=== PATIENT | female | born 1930 | race Caucasian/White ===

== ENCOUNTER 2016-10-03 13:14 | Inpatient (IN) | payer MEDICARE ==
[~2016-10-03] VITALS: Ht 166.4 cm; Wt 56.7 kg
[2016-10-03 13:21] VITALS: BP 157/85; PULSE 68; RESP 20; O2SAT 100
--- NOTE | 2016-10-03 13:45 | ED.REPORT ---
HPI-Trauma Minor / Fall Date of Service Oct 03, 2016 ED Provider: Jacques Sutton MD An 85 year old right handed female with a history of a stroke 7 years ago and HTN presents to the ED with L hip pain following a GLF which occurred sometime since last night. The patient is a poor historian and is unable to clarify when she fell. She was found in kitchen by sister after her medical alert went off approximately 1 hour GRADING CLERK (approx 12;30). The patient describes pain in her left hip described as soreness. Per patient, she was getting out of bed and trying to put her slippers on when she slipped and landed on the floor landing in a siting position. She grabbed onto mattress pad tab to get up. She then went to the bathroom and then to the kitchen. While in the kitchen, she apparently suffered a ground-level fall as she awoke laying on the floor. She does not believe she had any additional injury. She pushed her life alert button and family was alerted to her dilemma. The patient does not believe she hit her head in the fall. She is not sure how she ended up falling. She denies any headache, neck pain, fever, chills, dysuria, chest pain, abdominal pain, cough, vomiting, diarrhea, or aches . She also denies any functional impairment after her stroke 7 years ago. She is not taking any blood thinners and denies having diabetes. She reports baseline "funny" feeling in diaphragm area after eating. She is accompanied by sister, daughter, and granddaughter. . Nursing Notes Stated Complaint: GLF/LEFT SIDED WEAKNESS Chief Complaint: Neuro Symptoms/ Deficits Nursing Notes Reviewed: Yes Allergies: Coded Allergies: No Known Allergies (Unverified , 10/03/16) Scheduled Aspirin Chew (Aspirin Chew) 81 Mg Chew 81 MG PO DAILY Hydrochlorothiazide (Hydrochlorothiazide) 25 Mg Tablet 25 MG PO DAILY Levothyroxine (Levothyroxine) 75 Mcg Tablet 75 MCG PO QAM Lisinopril (Lisinopril) 20 Mg Tablet 20 MG PO BID Metoprolol Succinate ER (Metoprolol Succinate ER) 25 Mg Tab.er.24h 25 MG PO HS General Time Seen by MD: 13:42 Chief Complaint Fall Hx Obtained From: Patient, Other family... (sister, daughter, granddaughter), EMS Arrived By: Ambulance Onset Occurred: 1 - 4 hours ago (yesterday or this morning, patient is unsure.) Symptom Duration: Since onset Location: Hip left Severity: Current: Mild Severity: Maximum: Mild Recent Healthcare: No recent hospitalization Similar Sx Previous: No Risk Factors IC Bleed Risk Stratification Risk factors reviewed (Has history of stroke.) )( TPA Administration/Criteria Stroke Thrombolytic Therapy : TPA Considered: Yes TPA Administered Intravenously: No, exclusion criteria (Trauma, recent fall , no known onset) NIH Stroke Scale Level of Consciousness: Alert and responsive (0) Ask Month & Age: Both questions right (0) Open/Close Eyes/Hand Rn Bone Marrow Transplant: Performs both tasks (0) Horizontal EO Movements: None (0) Visual Ordoñez: No visual loss (0) Facial Palsy: Normal symmetry (0) Right Arm Motor Drift (10s): No drift 10 sec (0) Left Arm Motor Drift (10s): Drift, not touch bed (1) Right Leg Motor Drift (5s): No drift 5 sec (0) Left Leg Motor Drift (5s): No drift 5 sec (0) Limb Ataxia FNF/Heel-Cruz: Ataxia in 2 limbs (2) (Left upper and Left lower) Sensation (Arms/Legs/Face): No sensory loss (0) Language Aphasia: No aphasia, normal (0) Dysarthria: No dysarthria, normal (0) Extinction/Inattention: No exctinct/inattent (0) NIHSS Score: 2 Time NIHSS Performed: 17:40 Date NIHSS Performed: Oct 03, 2016 Past Medical History Past Medical History Stroke in August,. Hypothyroidism. Hypoglycemia. Not currently taking blood thinner medication. Denies: Diabetes mellitus Past Surgical History None reported. Smoking History Unknown if Ever Smoker Social History Other Social History: Good social support (Family lives nearbye), Lives alone Review of Systems Constitutional: Denies: Chills, Fever, Malaise Respiratory: Denies: Non-productive cough Musculoskeletal: Denies: Joint pain, Neck pain Neurologic: Denies: Headache Complete sys rev & neg: except as marked. Cardiovascular: Denies: Chest pain GI: Denies: Abdominal pain, Diarrhea, Vomiting Female: Denies: Dysuria Physical Exam Initial Vital Signs Vital Signs (First) Date Time Temp Pulse Resp B/P Pulse Ox O2 Delivery O2 Flow Rate FiO2 10/03/16 13:21 36.6 68 20 157/85 100 Room Air Initial VS: Reviewed General/Constitutional: Awake, Alert Neck: Atraumatic, Full range of motion Head / Eyes: Atraumatic, Normocephalic, PERRL, EOMI ENT: Atraumatic, Airway patent, Mucous membranes moist Respiratory / Chest: Atraumatic, Breath sounds NL, Breath sounds = bilat, No respiratory distress Cardiovascular: Heart rate NL, Regular rhythm, Heart sounds NL, No gallop, No murmurs, No rubs Abdomen: Atraumatic, Soft, Non-tender, McBurney's non-tender, No guarding, No rebound Back: Atraumatic, Full range of motion Upper Extremity / MS: Atraumatic, Full range of motion Lower Extremity / Pelvis / MS: Atraumatic, Full range of motion FROM in both hips. No lateral greater trochanteric tenderness. Skin: Atraumatic, Color NL, No rash, Warm, Dry Neurologic: Speech NL Focal Weakness: Positive: Upper extremity L Ataxia. Interpretation & Diagnostics Lab Results Interpretation Result Diagram: 10/03/16 1455 10/03/16 1455 Test 10/03/16 14:55 10/03/16 16:45 White Blood Count 10.9th/mm3 (3.8-10.1) Red Blood Count 3.94mil/mm3 (3.90-5.20) Hemoglobin 12.3g/dL (12.0-15.6) Hematocrit 34.9% (35.0-46.0) Mean Corpuscular Volume 88.6fL (81-100) Mean Corpuscular Hemoglobin 31.2pg (27.0-35.0) Mean Corpuscular Hemoglobin Concent 35.2% (32.0-37.0) Red Cell Distribution Width 13.3% (12.3-15.4) Platelet Count 217bil/L (150-400) Neutrophils (%) (Auto) 83.5% (40-74) Lymphocytes (%) (Auto) 7.4% (14-46) Monocytes (%) (Auto) 7.1% (4-12) Eosinophils (%) (Auto) 1.5% (0-5) Basophils (%) (Auto) 0.2% (0-3) Sodium Level 139mEq/L (134-144) Potassium Level 3.7mEq/L (3.5-5.2) Chloride Level 101mEq/L (97-108) Carbon Dioxide Level 20mmol/L (18-29) Blood Urea Nitrogen 33mg/dL (8-27) Creatinine 1.29mg/dL (0.57-1.00) Estimat Glomerular Filtration Rate 56mL/min (>59) Glucose Level 122mg/dL (60-99) Calcium Level 9.2mg/dL (8.5-10.1) Total Bilirubin 0.6mg/dL (0.0-1.2) Aspartate Amino Transf (AST/SGOT) 19U/L (0-50) Alanine Aminotransferase (ALT/SGPT) 9U/L (0-32) Alkaline Phosphatase 71U/L (25-165) Troponin T < 0.010ug/L (0.0-0.011) Total Protein 7.1g/dL (6.4-8.4) Albumin 4.0g/dL (3.4-5.0) Urine Color Yellow (YELLOW) Urine Appearance Clear (CLEAR,HAZY) Urine pH 6.0 (5.0-8.0) Urine Specific [place] 1.020 (1.003-1.035) Urine Protein Negativemg/dL (NEG,TRACE) Urine Glucose (UA) Negativemg/dL (NEGATIVE) Urine Ketones Tracemg/dL (NEGATIVE) Urine Occult Blood Trace (NEGATIVE) Urine Nitrite Negative (NEGATIVE) Urine Bilirubin Negative (NEGATIVE) Urine Urobilinogen Normalmg/dL (NORMAL) Urine Leukocyte Esterase Negative (NEGATIVE) Urine RBC 0-2/hpf (0-2) Urine WBC 0-5/hpf (0-5) Urine Epithelial Cells Few/hpf (NONE-MOD) Urine Crystals None seen (NONE SEEN) Urine Bacteria Few/hpf (NONE-FEW) Urine Hyaline Casts None/lpf (NONE) Urine Granular Casts None seen (NONE SEEN) Urine Waxy Casts None seen (NONE SEEN) Urine Red Blood Cell Casts None seen (NONE SEEN) Urine White Blood Cell Casts None seen (NONE SEEN) Urine Mucus None seen (None Seen) Urine Trichomonas None seen (NONE SEEN) Urine Yeast None (NONE SEEN) Urinalysis Comment None Urine Culture Reflexed Not indicated General Lab Results Interp 1: Labs reviewed ECG Interpretation ECG Interpretation: Sinus Rythm. Rate is 67. Non-specific ST wave changes. Time: 16:16 Interpreted by: ED physician CT Head Interpretation IMPRESSION: 1. No acute intracranial abnormality. 2. Age-related atrophy and extensive chronic deep white matter small vessel ischemic change. 3. Chronic lacunar infarct in the anterior right basal ganglia. Dictated by: Segundo Garcia M.D. on 10/03/2016 at 15:34 Approved by: Segundo Garcia M.D. on 10/03/2016 at 15:39 Study: Head CT no contrast Interpretation / Wet Read by: Interpret - Radiologist Re-Eval/Medical Decision Med Decision/Clinical Course Family is very likely concerned about the fact that I am not wanting to feed her. I think it is reasonable to await swallow evaluation prior to oral feeding. I told them that they could TO feed her but it would not be advisable because of the risk of aspiration. Source of Hx: Old records, EMS Re-Evaluation/Progress #1: Time of Eval: 17:13 Re-Evaluation/Progress Note: Rechecked patient who is now accompanied by her son. Explained and discussed test results, diagnosis, and plan for admission. Patient understands and agrees with the plan. Re-Evaluation/Progress #2: Time of Eval: 17:25 Re-Evaluation/Progress Note: Rechecked patient. Performed NIH Stroke Scale. Consultation : Referral / Consult Name: Pascual Jeffers MD Consulted With: Hospitalist Call Returned at: 17:41 Change Control Specialist: Agrees with eval, Agrees with plan, Accepts admit Note: Dr. Jeffers agrees with eval and accepts patient admit to hospital. Counseled Regarding: Diagnosis, Lab results, Need for admission Discharge & Departure Impression: Primary Impression: CVA (cerebral vascular accident) CVA mechanism: unspecified Qualified Code: I63.9 - Cerebral infarction, unspecified Disposition: ADMITTED TO HOSPITAL Discharge Condition All VS Reviewed: Yes Referrals: Jeremías Burgos MD (PCP) Scribe Attestation Portions of this note were transcribed by Chuck Richardson and Ketty Friedman. I, , personally performed the history, physical exam, and medical decision-making: I reviewed and confirmed the accuracy for the information in the transcribed note. Signed by: Chuck Richardson and albert Rich, 10/03/16 1422. copies to: Jeremías Burgos MD, Kirk H MD Oct 03, 2016 13:44 Chuck Richardson Oct 03, 2016 13:55 Ketty Friedman Oct 03, 2016 17:58
[2016-10-03 15:05] LABS: BASOPHILS % (AUTO) 0.2 % (0-3); EOSINOPHILS % (AUTO) 1.5 % (0-5); MONOCYTES % (AUTO) 7.1 % (4-12); Mean Corpuscular Hemoglobin 31.2 pg (27.0-35.0); Mean Corpuscular Volume 88.6 fL (81-100); NEUTROPHILS % (AUTO) 83.5 % (40-74); Platelet Count 217 bil/L (150-400)
[2016-10-03 15:31] LABS: TROPONIN T < 0.010 ug/L (0.0-0.011)
--- NOTE | 2016-10-03 15:41 | DRSVH ---
PROCEDURE: CT BRAIN WITHOUT CONTRAST ([id number]) INDICATIONS: Left Upper extremity weak TECHNIQUE: Noncontrast 4.5 mm thick angled axial sections acquired from the foramen magnum to the vertex, with c oronal reformats. COMPARISON: CT brain 08/23/2009 FINDINGS: Image quality: Excellent CSF spaces: Basal cisterns are patent. No extra-axial fluid collections. The ventricles are symmet presley in size and shape. Brain: No intracranial bleeds or masses. There is cerebral volume loss for age, with resultant vent ricular and sulcal prominence. No apparent residual of previous hemorrhag in the right frontoparietal hemisphere. There are extensive periventricular and deep white matter chronic small vessel ischemic changes. The chronic lacunar infarct adjacent to the right caudate nucleus on the last exam is much l arger on current study, presumably representing extension of previous infarct but still chronic in ap pearance. There is intracranial internal carotid artery atherosclerosis. Skull and face: Calvarium and visualized facial bones appear intact, without suspicious lesions. Sinuses: Visualized sinuses and mastoids are clear. IMPRESSION: 1. No acute intracranial abnormality. 2. Age-related atrophy and extensive chronic deep white matter small vessel ischemic change. 3. Chronic lacunar infarct in the anterior right basal ganglia. Dictated by: Segundo Garcia M.D. on 10/03/2016 at 15:34 Approved by: Segundo Garcia M.D. on 10/03/2016 at 15:39
[2016-10-03] MEDS ORDERED: Acetaminophen IV 1,000 MG in IV Premix 1 EACH IV ONE (16:10)
[2016-10-03 17:10] LABS: APPEARANCE,URINE CLEAR (CLEAR,HAZY); COLOR,URINE YELLOW (YELLOW); OCCULT BLOOD,URINE TRACE (NEGATIVE); UROBILINOGEN,URINE NORMAL (NORMAL)
[2016-10-03] MEDS ORDERED: Dextrose 5% 0.9% NaCl 1,000 ML IV SCH (17:25)
[2016-10-03] MEDS ORDERED: LEVO75TA4 PO (17:47)
[2016-10-03] MEDS ORDERED: HYDR25TA4 PO (17:48)
[2016-10-03] MEDS ORDERED: METO25TA99 PO (17:48)
[2016-10-03] MEDS ORDERED: LISI-567 PO (17:49)
[2016-10-03] MEDS ORDERED: ASPI81TA3 PO (17:49)
[2016-10-03 18:09] VITALS: BP 138/60; PULSE 75; RESP 18; O2SAT 94
[2016-10-03] MEDS ORDERED: Ondansetron 2 mg/mL 2 mL Inj IVPUSH PRN (18:10)
[2016-10-03] MEDS ORDERED: HYDROmorphone 0.5 mg/0.5 mL iSecure Syringe IVPUSH PRN (18:10)
[2016-10-03 18:53] VITALS: BP 138/60; PULSE 75; RESP 18; O2SAT 94
[2016-10-03 19:16] VITALS: PULSE 84
[2016-10-03 19:31] VITALS: BP 160/97; PULSE 90; RESP 18; O2SAT 98
--- NOTE | 2016-10-03 19:45 | NUR ---
Admission Note Pt admitted to [facility] on stretcher from ER at 1856, alert and orientedx3, denies any pain/SOB/N/V/fever/chills/numbness/tingling. Pt states "I don't feel anything wrong" Neurocheck:generalized weakness when up to BSC,strength equal bilaterally on all extremities, tongue deviated to the left, no facial droop noted, no speech difficulty noted, understanding spoken language. Sensation intact. Lung sound clear, HR regular, no murmur, tele applied: SR 62 per instrument technician. Abdomen soft, nontender, BT active, no edema on LEs, pedal pulse weak but palpable. BP 166/97 HR 90% on RA RR 18, T37.3. Pt passed swallow screen and on puree diet per report from ER Nurse "Misael Stuart" Pt oriented to call light, and instructed to call when need OOB for safety. Several family in room.
[2016-10-03] MEDS ORDERED: Alum-Mag Hydrox-Simeth 30 mL Suspension PO PRN (20:40)
[2016-10-03] MEDS ORDERED: Polyethylene Glycol (PEG) 17 Gm Powder PO PRN (20:40)
[2016-10-03] MEDS ORDERED: Ondansetron 2 mg/mL 2 mL Inj IV PRN (20:40)
[2016-10-03] MEDS ORDERED: Labetalol 5 mg/mL 4 mL Inj IVPUSH PRN (20:40)
[2016-10-03 22:09] LABS: INR 0.97 ratio
[2016-10-03] MEDS: 0.9% Sodium Chloride 1,000 ML IV SCH (22:32)
--- NOTE | 2016-10-03 22:52 | PCM.HPMED ---
Subjective Date of Service Oct 03, 2016 Primary Provider: Admitting Physician: Pascual Jeffers MD Primary Care Physician: Jeremías Burgos MD Attending Physician: Pascual Jeffers MD Admit Status: From the Emergency Department Chief Complaint: Weakness and ground-level fall History of Present Illness: 85-year-old female patient with a history of CVA 7 years ago, hypertension, hypothyroidism presented to the ER following a ground-level fall. Patient and her daughter are both poor historians. Patient reports that sometime yesterday or possibly today she fell and slipped off her bed and hit her buttocks on the ground while attempting to put her slippers on she states that she was able to get up and go to the restroom, and later was able to get up and go to the kitchen at which point she had another fall but denies any loss of consciousness. Patient reports she is not sure how or why she fell in the kitchen but denies any loss of consciousness or hitting her head. Patient reports that when she fell in the kitchen she had her medical alert button and her family was informed and EMS called. ER records demonstrate that patient had left-sided weakness on presentation. At the time of my interview all of the patient's symptoms had resolved. Vital signs in the ER as follows, temperature 36.6, pulse 68, respiratory rate 20, blood pressure 157/85, pulse ox 100% on room air. Review of Systems: A comprehensive review of systems was conducted with the patient and found to be negative except as above in the History of Present Illness. Allergies Coded Allergies: No Known Allergies (Unverified , 10/03/16) Home Medications Aspirin 81 mg daily Levothyroxine 75 mg daily Hydrochlorothiazide 25 mg daily Lisinopril 20 mg twice a day Metoprolol 25 mg daily PMH Hypoglycemia Peripheral artery disease CVA 7 years ago Hypertension Hypothyroidism Hyperlipidemia Chronic kidney disease stage III Surgical History None reported Family History Father with bladder cancer Social History Hx Alcohol Use: No Hx Substance Use: No Hx Tobacco Use: No Smoking Status: Never Smoker Living Arrangement: Alone Exam Vital Signs Vital Sign - Last Date Time Temp Pulse Resp B/P Pulse Ox O2 Delivery O2 Flow Rate FiO2 10/03/16 19:31 37.3 90 18 160/97 98 Room Air Exam General: Poor historian. No acute distress, well-developed, well-nourished, appropriately interactive HEENT: Normocephalic, atraumatic. External ears without defect. Pupils equal, round, and reactive to light and accommodation. Moist conjunctivae. Oropharynx with moist mucosa. Neck: Supple with full range of motion.No lymphadenopathy Cardiovascular: Regular rate and rhythm with no murmurs, rubs, or gallops appreciated Pulmonary: Clear to auscultation bilaterally with no crackles, wheezes, or rhonchi. Normal respiratory effort with no use of accessory muscles. Abdomen: Bowel tones present. Soft, nontender, nondistended. Extremities: No clubbing, cyanosis, edema, appreciated. Skin: Normal temperature, turgor, and texture; no rash, ulcers, or subcutaneous nodules appreciated. Psychiatric: Normal mood and affect. Alert and oriented to person, place, and time. Neurological: Cranial nerves grossly intact. Normal muscle strength, tone, and bulk. Reflexes, coordination, and sensory function within normal limits. Lab and Diagnostics Result Diagram: 10/03/16 1455 10/03/16 1455 X-Rays, CTs and MRIs PROCEDURE: CT BRAIN WITHOUT CONTRAST ([id number]) INDICATIONS: Left Upper extremity weak TECHNIQUE: Noncontrast 4.5 mm thick angled axial sections acquired from the foramen magnum to the vertex, with coronal reformats. COMPARISON: CT brain 08/23/2009 FINDINGS: Image quality: Excellent CSF spaces: Basal cisterns are patent. No extra-axial fluid collections. The ventricles are symmetric in size and shape. Brain: No intracranial bleeds or masses. There is cerebral volume loss for age , with resultant ventricular and sulcal prominence. No apparent residual of previous hemorrhag in the right frontoparietal hemisphere. There are extensive periventricular and deep white matter chronic small vessel ischemic changes. The chronic lacunar infarct adjacent to the right caudate nucleus on the last exam is much larger on current study, presumably representing extension of previous infarct but still chronic in appearance. There is intracranial internal carotid artery atherosclerosis. Skull and face: Calvarium and visualized facial bones appear intact, without suspicious lesions. Sinuses: Visualized sinuses and mastoids are clear. IMPRESSION: 1. No acute intracranial abnormality. 2. Age-related atrophy and extensive chronic deep white matter small vessel ischemic change. 3. Chronic lacunar infarct in the anterior right basal ganglia. Dictated by: Segundo Garcia M.D. on 10/03/2016 at 15:34 Approved by: Segundo Garcia M.D. on 10/03/2016 at 15:39 Assessment & Plan Suspected TIA, present on admission, ongoing - Patient is a poor historian, as well as her daughter, making history slightly difficult to obtain -Differential diagnosis includes TIA, hypoglycemia, orthostatic hypotension -Per records patient takes 81 mg of aspirin daily -All of patient's symptoms have resolved, and she is back to baseline -CT brain in the ER was negative for any acute changes -MRI CTA and Echo ordered for the a.m. -Swallow evaluation to be performed prior to starting diet -Allowing for permissive hypertension -Labetalol 10 mg IV available for SBP greater than 220 -Physical therapy evaluation to be done in the morning -No lipid panel ordered, as her lipids were checked in the outpatient setting on 09/14/16-total cholesterol 228, HDL 49, LDL 154, triglycerides 124 -TSH also not ordered, as it was checked 09/14/16 and was 1.58 -Patient was given a dose of Plavix in the ER, recommend continuing 75 mg Plavix daily -Gentle hydration at NS 100 mils per hour Ground-level fall, present on admission, ongoing -EKG performed in the ER did not demonstrate any arrhythmias -She was hemodynamically stable in the ER -At this time it is unclear the etiology or cause of the patient's fall -Patient complaining of some mild left buttock soreness, if she continues to note pain consider x-ray of the left hip. Patient has full range of motion at the left hip currently Chronic hypothyroidism -Patient takes 75 MCG levothyroxine -TSH was 1.58 on 09/14/16 Hyperlipidemia -labs were checked 09/14/16-total cholesterol 228, HDL 49, LDL 154, triglycerides 124 -No plan to recheck labs Chronic kidney disease stage III, present on admission, ongoing -Outpatient records demonstrate creatinine of 1.42 on 09/14/2016 -BUN and creatinine on admission 33 and 1.29 respectively -Continue to monitor with a.m. labs Chronic hypoglycemia, -No hypoglycemia on presentation, patient had glucose of 122. -Continue to monitor with a.m. labs PCP: Dr. Burgos CODE STATUS: DNR/DNI Patient is admitted under observation status with expected length of stay less than 2 midnights due to severity of presenting symptoms, risk of adverse event, and complexity of treatment plan. Pain Evaluation: Adequate Pain Control VTE Prophylaxis: Sub-Q Heparin (Unfractionated) Resuscitation Status: DNR/DNI:Do Not Resuscitate/Intubate Attending Statement The patient was seen and examined together with Dr. Paul on 10/03 and I agree with the history, exam and plan as outlined in the note above. copies to: Jeremías Burgos MD, Tara L DO Oct 03, 2016 21:00 Unruly Linder MD Oct 04, 2016 03:12
[2016-10-03 23:11] VITALS: BP 158/72; PULSE 65; RESP 19; O2SAT 99
[2016-10-03 23:46] LABS: APPEARANCE,URINE HAZY (CLEAR,HAZY); COLOR,URINE STRAW (YELLOW); OCCULT BLOOD,URINE TRACE (NEGATIVE); UROBILINOGEN,URINE NORMAL (NORMAL)
[2016-10-04] VITALS (9 sets, daily range): BP systolic 117–172; BP diastolic 76–110; PULSE 55–90; RESP 17–22; O2SAT 98–100
[2016-10-04 07:10] LABS: BASOPHILS % (AUTO) 0.3 % (0-3); EOSINOPHILS % (AUTO) 3.6 % (0-5); MONOCYTES % (AUTO) 11.6 % (4-12); Mean Corpuscular Hemoglobin 31.1 pg (27.0-35.0); Mean Corpuscular Volume 90.1 fL (81-100); NEUTROPHILS % (AUTO) 63.3 % (40-74); Platelet Count 209 bil/L (150-400)
[2016-10-04] MEDS: 0.9% Sodium Chloride 1,000 ML IV SCH ×2 (09:09→16:07)
--- NOTE | 2016-10-04 09:27 | NUR ---
Evaluation completed. Please go to "Notes" then click on "Assessments and Notes" (bottom left corner of screen). Then select appropriate discipline tab on top of screen.
--- NOTE | 2016-10-04 09:57 | DRSVH ---
PROCEDURE: CT ANGIO HEAD AND NECK (P) INDICATIONS: Stroke/TIA TECHNIQUE: Pre-contrast 4.5 mm thick sections acquired from the foramen magnum to the vertex. After the adminis tration of intravenous contrast, 1 mm thick sections acquired from the aortic arch through the [place] of [place]. Post-contrast 4.5 mm thick sections then re-acquired from the foramen magnum to the vert ex. 3-dimensional buwqfpe-sptjgashd-khqsimtgrl (MIP) and/or volume rendering reformats were acquired of the central intracranial vasculature and neck separately. For radiation dose reduction, the foll owing was used: automated exposure control, adjustment of mA and/or kV according to patient size. COMPARISON: [facility], CT, CT BRAIN WO CON, 10/03/2016, 15:16. FINDINGS: Image quality: Excellent. BRAIN: The ventricular system and cortical sulci demonstrate atrophy, consistent for the patient's stated ag e. There are areas of hypodensity within the periventricular and subcortical white matter. There is no acute intra-or extra axial fluid collection. No acute hemorrhage, mass lesion or midline shift. Br ainstem is unremarkable. Globes are symmetrical. Sinuses are aerated. Osseous structures are intact. HEAD CT ANGIOGRAPHY: The posterior circulation demonstrates a vertebral artery codominance. There is a high grade stenosis , approximately 85% within the distal left vertebral artery. Basilar artery and posterior cerebral ar teries demonstrate no areas of hemodynamically significant stenosis, vascular occlusion or aneurysmal dilation. Posterior communicating arteries are within normal limits. 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 The left-sided anterior circulation, including the anterior and middle cerebral arteries, as well as the internal carotid arteries demonstrates no areas of hemodynamically significant stenosis, vascular occlusion or aneurysmal dilation. The right internal carotid artery is occluded. The right MCA appea rs patent likely secondary to collateral flow. 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 NECK CT ANGIOGRAPHY: The origins of the left and right common, left internal and left and right external carotid arteries demonstrate no areas of hemodynamically significant stenosis, vascular occlusion or aneurysmal dilati on. There is very minimal narrowed flow of the proximal internal carotid artery on the right for appr oximately 8 mm from the origin. Distal to that point, there appears to be complete occlusion. Origins of the left and right vertebral arteries demonstrate no areas of hemodynamically significant stenosi s, vascular occlusion or aneurysmal dilation. Aortic arch demonstrates conventional anatomy. Limited, visualized portions subclavian vasculature are unremarkable. Soft tissues: Visualized neck soft tissues demonstrate no suspicious abnormalities. Bones: No suspicious bony lesions. Visualized cervical spine appears normally aligned. IMPRESSION: 1. No acute intracranial process. 2. Moderate atrophy and chronic microvascular ischemic changes. 3. Complete occlusion of the right internal carotid artery, beginning approximately 8 mm distal to th e origin with narrowed flow within the proximal most portion. 4. High grade stenosis of approximately 80% within the distal left vertebral artery. Dictated by: Nathalie Baig M.D. on 10/04/2016 at 9:39 Approved by: Nathalie Baig M.D. on 10/04/2016 at 9:55
[2016-10-04] MEDS ORDERED: KCl 40 mEq/D5W 500 mL 40 MEQ in IV Premix 1 EACH IV ONE (10:55)
--- NOTE | 2016-10-04 13:10 | DRSVH ---
[facility] [address] [place] [address] Echocardiogram Report Name: ARLETTE CALIXTO NStudy Date: 10/04/2016 Height: 65 in Hospital Exam Location: [facility] Weight: 123 lb Gender: Female BSA: 1.6 m2 : 1930 Age: 85 yrs BP: 117/76 mmHg Reason For Study: CVA Ordering Physician: Performed By: Danette Ledesma Referring Physician: Jeremías Burgos Interpretation Summary The left ventricle is normal in size, wall thickness, and systolic function without any focal wall motion abnormalities. The ejection fraction is estimated to be 60-65%. There is no Doppler evidence for an atrial septal defect. There is mild to moderate mitral regurgitation. There is mild tricuspid regurgitation. The right ventricular systolic pressure is estimated at 31 mmHg assuming a right atrial pressure of 3 mm Hg. Procedure: A two-dimensional transthoracic echocardiogram with color flow and Doppler was performed. The study quality was technically adequate. There is no prior echocardiogram noted for this patient. The patient was in sinus during the exam. Left Ventricle: The left ventricle is normal in size, wall thickness, and systolic function without any focal wall motion abnormalities. The ejection fraction is estimated to be 60-65%. The E/A wave ratio > 2.0 could be indicative of increased preload or reduced atrial contractility. Clinical correlation is necessary. Right Ventricle: The right ventricle is normal in size and function. Atria: Both atria are moderately dilated. There is no Doppler evidence for an atrial septal defect. Mitral Valve: The mitral valve leaflets appear normal. There is no evidence of stenosis, fluttering, or prolapse. There is mild to moderate mitral regurgitation. Aortic Valve: The aortic valve is trileaflet. The aortic valve opens well. No aortic regurgitation is present. Tricuspid Valve: The tricuspid valve leaflets are thin and pliable. There is mild tricuspid regurgitation. The right ventricular systolic pressure is estimated at 31 mmHg assuming a right atrial pressure of 3 mm Hg. Pulmonic Valve: The pulmonic valve leaflets are thin and pliable; valve motion is normal. There is no pulmonic valvular regurgitation. Great Vessels: The aortic root is normal size. The dimensions of the ascending aorta are normal. The pulmonary artery is normal size. The IVC is of normal diameter and collapses greater than 50% with a sniff. This suggests a low right atrial pressure of 3 mm Hg. Pericardium/ Pleura There is no pericardial effusion. There has been no significant change since the previous study. MMode/2D Measurements & Calculations LVIDd: 4.4 cm LA dimension: 4.1 cm RA long axis LVOT diam: 2.0 cm LVIDs: 2.3 cm AoV Opening FS: 47.4 % LA A2 area: 21.1 cm RA area IVSd: 0.93 cm LA A4 area: 25.7 cm Ao root diam LVPWd: 0.96 cm LA length (vol) : 20.7 cm RA vol Ao Arch Diam (Prox LA vol: 71.9 ml : 66.2 ml Trans): 2.2 cm LA vol index RA : 41.1 mm/ RVDd major IVC diam: 1.3 cm : 5.1 cm LV moore. diameter/BSA LV sys. diameter/BSA RVD2 (mid) (cm/m^2): 2.8 (cm/m^2): 1.4 : 3.1 cm Doppler Measurements & Calculations Ao V2 max MV E max jed MV E/A: 2.2 TR max jed : 120.7 cm/sec : 93.2 cm/sec Med Peak E' Jed : 262.3 cm/sec Ao max PG MV A max jed TR max P.5 mmHg : 5.8 mmHg : 42.7 cm/sec E/E' med: 19.6 PA V2 max Ao mean PG MV P1/2t Pulm A Revs Dur : 60.5 cm/sec : 58.7 msec PA mean P.96 mmHg LVOT Max Jed MR ERO: 0.18 cm2 MV A dur: 0.14 sec PA Accel Time : 100.7 cm/sec : 0.16 sec ALON(I,D): 2.4 cm sev ratio MV dec time MV P1/2t max jed Ao V2 mean LV V1 max PG : 0.19 sec : 88.8 cm/sec MVA(P1/2t) Ao V2 VTI: 27.6 cm LV V1 VTI: 21.3 cm : 3.7 cm2 ALON(V,D): 2.6 cm2 MR flow rate PA V2 mean ALON indexed to BSA Pulm A Revs Dur - MV : 99.5 cm3/sec : 48.0 cm/sec (cm^2/m^2): 1.5 A Dur: 0.00 msec MR PISA radius Electronically signed by: Alexys Maloney on Reading Physician:10/04/2016 01:09 PM
--- NOTE | 2016-10-04 13:30 | DRSVH ---
PROCEDURE: MRI BRAIN WITHOUT CONTRAST ([id number]) INDICATIONS: tia TECHNIQUE: Non-contrast axial T1 spin echo, axial T2 fast spin echo, sagittal and axial FLAIR, coronal T2 fast s pin echo, axial gradient echo, axial diffusion and ADC through the brain. COMPARISON: None. FINDINGS: Image quality: Excellent. CSF spaces: Ventricles appear symmetric in size and shape. Basal cisterns are patent. No extra-axi al fluid collections. Brain: No intracranial bleeds or mass effects. There is cerebral volume loss for age. There are ex tensive periventricular and deep white matter chronic small vessel ischemic changes. Encephalomalacia is present within the right parietal lobe. An old lacunar infarct is present within the right basal ganglia. Brainstem appears normal. There is a 1-2 mm focus of increased restricted diffusion in the right parietal lobe (series 2, image 60 and 33, image 14. No other findings to suggest acute or subac [place] infarct. No chronic ischemic insults. Normal intravascular flow voids are present. Skull and face: Calvarial bone marrow is normal in signal. Orbits are normal. Sinuses: Sinuses and mastoids are clear. IMPRESSION: 1. Punctate focus of increased restricted diffusion within the right parietal lobe suspicious for regina roinfarct. 2. Extensive white matter changes likely associated with chronic microvascular ischemia. 3. 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 Dictated by: Ladi Keys M.D. on 10/04/2016 at 13:23 Approved by: Ladi Keys M.D. on 10/04/2016 at 13:28
--- NOTE | 2016-10-04 13:55 | NUR ---
Case Management: Explained NUNEZ, patient signed. Copy of signed form provided to patient. Original in chart. CPerryRNCCM.
--- NOTE | 2016-10-04 15:37 | NUR ---
Social Work Note Initial Assessment: D/A: The Pt is an 85 y/o female that was admitted under observation status for CVA as per EMR. The Pt's PCP is MD Jeremías Burgos and primary insurance is [employer] Medicare, no LTC or VA benefits. EMR reviewed, SW met with the Pt and her daughter Janeen to explain role and discuss discharge planning. The Pt lives alone in a one story home with two steps to enter, Pt denies any concerns with the steps. The Pt does not have an Advanced Care Directive, paperwork given and explained to Pt and daughter. The Pt reports that her daughter comes to her home about two times a week to assist with home care, medications, and driving. Family to provide transportation after D/C. The Pt has a history with and at [facility]. discussed, Pt and family interested in this type of service. Pt eligible due to [employer] Medicare insurance. List given, preference for [facility]. F2F printed, in folder. Access given. OT eval. completed, recommending home with increased supervision at least initially upon return. This information was presented to Pt and family, SW to follow-up with Pt and family regarding this recommendation tomorrow. Pt and daughter discussed need for additional help at home. SRG given and explored with the Pt and daughter. SW will continue to follow. P: Pt likely to discharge home when medically stable. OT eval. completed, recommending home with initial home supervision. Discussed recommendation with Pt and daughter, SW to follow-up with the Pt and family tomorrow regarding OT recommendation of increased supervision. SW will continue to follow. VICKIE [employer] Engineer Luzmaria Shannon LMSW Addendum: 10/04/16 at 1538 by SUSANNA GUEVARA Amended: Links added.
--- NOTE | 2016-10-04 17:51 | NUR ---
Infused peripheral IV's Patient had two peripheral IV's. One in left AC and one in the right AC. Patient was connected to left AC and IV infiltrated. IV was removed and hot pack placed on site and elevated. IV medication was then started on the right AC peripheral IV, which also infiltrated shortly after. Right AC IV was removed and place moist heat on site and elevated arm. IV therapy was called and placed a peripheral IV in left forearm. New IV patent and running well.
--- NOTE | 2016-10-04 19:03 | PCM.PNMED ---
Subjective Date of Service Oct 04, 2016 Subjective 85-year-old female patient with a history of CVA 7 years ago, hypertension, hypothyroidism presented to the ER following a ground-level fall. She presented with left-sided weakness. Admitted for CVA rule out. Hospital day # 2. No acute overnight events. Patient is resting comfortably in a chair eating breakfast. Patient states she is feeling fine and denies any neurological symptoms. Exam Vital Signs Vital Sign - Last Date Time Temp Pulse Resp B/P Pulse Ox O2 Delivery O2 Flow Rate FiO2 10/04/16 17:46 90 10/04/16 17:16 36.5 22 163/89 99 Room Air Intake and Output 10/03/16 10/03/16 10/04/16 Cumulative From/Thru 15:00 23:00 07:00 10/03/16 13:21 - 10/04/16 06:40 Intake Total 999 ml 887 ml 1886 ml Output Total 850 ml 850 ml Balance 999 ml 37 ml 1036 ml Intake Oral 100 ml 100 ml IV Total 999 ml 787 ml 1786 ml Output Urine Total 850 ml 850 ml # Bowel Movements 0 0 Exam General: No acute distress, well-developed, well-nourished, appropriately interactive HEENT: Normocephalic, atraumatic. External ears without defect. Pupils equal, round, and reactive to light and accommodation. Moist conjunctivae. Oropharynx with moist mucosa. Neck: Supple with full range of motion.No lymphadenopathy Cardiovascular: Regular rate and rhythm with no murmurs, rubs, or gallops appreciated Pulmonary: Clear to auscultation bilaterally with no crackles, wheezes, or rhonchi. Normal respiratory effort with no use of accessory muscles. Abdomen: Bowel tones present. Soft, nontender, nondistended. Extremities: No clubbing, cyanosis, edema, appreciated. Skin: Normal temperature, turgor, and texture; no rash, ulcers, or subcutaneous nodules appreciated. Psychiatric: Normal mood and affect. Alert and oriented to person, place, and time. Neurological: Cranial nerves grossly intact. Normal muscle strength, tone, and bulk. Reflexes, coordination, and sensory function within normal limits. Lab and Diagnostics Result Diagram: 10/04/16 0640 10/04/16 0640 X-Rays, CTs and MRIs PROCEDURE: CT BRAIN WITHOUT CONTRAST IMPRESSION: 1. No acute intracranial abnormality. 2. Age-related atrophy and extensive chronic deep white matter small vessel ischemic change. 3. Chronic lacunar infarct in the anterior right basal ganglia. Dictated by: Segundo Garcia M.D. on 10/03/2016 at 15:34 Approved by: Segundo Garcia M.D. on 10/03/2016 at 15:39 PROCEDURE: CT ANGIO HEAD AND NECK (P) IMPRESSION: 1. No acute intracranial process. 2. Moderate atrophy and chronic microvascular ischemic changes. 3. Complete occlusion of the right internal carotid artery, beginning approximately 8 mm distal to the origin with narrowed flow within the proximal most portion. 4. High grade stenosis of approximately 80% within the distal left vertebral artery. Dictated by: Nathalie Baig M.D. on 10/04/2016 at 9:39 Approved by: Nathalie Baig M.D. on 10/04/2016 at 9:55 PROCEDURE: MRI BRAIN WITHOUT CONTRAST IMPRESSION: 1. Punctate focus of increased restricted diffusion within the right parietal lobe suspicious for microinfarct. 2. Extensive white matter changes likely associated with chronic microvascular ischemia. 3. 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 Dictated by: Ladi Keys M.D. on 10/04/2016 at 13:23 Approved by: Ladi Keys M.D. on 10/04/2016 at 13:28 Cardiac Echo Impressions Echocardiogram Report Interpretation Summary The left ventricle is normal in size, wall thickness, and systolic function without any focal wall motion abnormalities. The ejection fraction is estimated to be 60-65%. There is no Doppler evidence for an atrial septal defect. There is mild to moderate mitral regurgitation. There is mild tricuspid regurgitation. The right ventricular systolic pressure is estimated at 31 mmHg assuming a right atrial pressure of 3 mm Hg. Electronically signed by: Alexys Maloney on Reading Physician:10/04/2016 01:09 PM Assessment & Plan CVA, present on admission, ongoing -MRI brain without contrast showed punctate focus of increased restricted diffusion within the right parietal lobe suspicious for microinfarct, consistent with CVA. -Neurology, Dr. Vyas consulted. Per his recommendation patient should be on either aspirin or Plavix, we will stop aspirin and continue Plavix 75 mg. Continue atorvastatin 20 mg (labs on 09/14/16-total cholesterol 228, HDL 49, LDL 154, triglycerides 124). -All of patient's symptoms have resolved, and she is back to baseline -CT angio Heads & Neck showed complete occlusion of the right internal carotid artery, beginning approximately 8 mm distal to the origin with narrowed flow within the proximal most portion. High grade stenosis of approximately 80% within the distal left vertebral artery. Surgery has been consulted, no endarterectomy recommended for 100% occlusion if the opposite side perfusing. -Allowing for permissive hypertension, labetalol 10 mg IV available for SBP greater than 220 -Physical therapy evaluation -Gentle hydration at NS 100 mils per hour Ground-level fall, present on admission, ongoing -D/t acute CVA -EKG performed in the ER did not demonstrate any arrhythmias -Hemodynamically stable -Patient was complaining of some mild left buttock soreness, improved Chronic hypothyroidism -Patient takes 75 MCG levothyroxine -TSH was 1.58 on 09/14/16 Hyperlipidemia -labs were checked 09/14/16-total cholesterol 228, HDL 49, LDL 154, triglycerides 124 -No plan to recheck labs but will continue atorvastatin 20 mg Chronic kidney disease stage III, present on admission, improving -Outpatient records demonstrate creatinine of 1.42 on 09/14/2016 -BUN and creatinine on admission 33 and 1.29 respectively, 24 and 1.08 today -Continue to monitor with a.m. labs Chronic hypoglycemia, -No hypoglycemia on presentation, patient had glucose of 122. -Continue to monitor with a.m. labs Patient is admitted under observation status with expected length of stay less than 2 midnights due to severity of presenting symptoms, risk of adverse event, and complexity of treatment plan. VTE Prophylaxis: Sub-Q Heparin (Unfractionated) VTE Mechanical Devices: Intermittant Pneumatic CD Resuscitation Status: DNR/DNI:Do Not Resuscitate/Intubate Attending Statement The patient was seen and examined together with Dr. Rosales on 10/04/16 and I agree with the history, exam and plan as outlined in the note above. copies to: Jeremías Burgos MD, Oksana S DO Oct 04, 2016 18:31 Esther Fabian DO Oct 05, 2016 10:29
--- NOTE | 2016-10-04 20:09 | CONS ---
[address] [address] CONSULTATION REPORT PATIENT: ARLETTE CALIXTO : 1930 MR#: [id number] ADMIT: 10/03/2016 JOB ID: [id number] DATE OF SERVICE: 10/04/2016 CHIEF COMPLAINT/IDENTIFICATION: I have been asked by the hospitalist service to consult on this woman regarding possible symptomatic carotid disease. HISTORY OF PRESENT ILLNESS: This is an 85-year-old, right-handed woman with a history of a right brain stroke seven years ago who was admitted to the hospital yesterday having suffered a ground level fall with a question of possible CVA versus TIA. She underwent a head CT which demonstrated no acute intracranial abnormality but an old lacunar infarct in the anterior right basal ganglia. Her workup has included a brain CT, head and neck CT angiogram, and a brain MRI. The specific question I have been asked to address is that she has evidence of a right internal carotid artery occlusion on her CT angiogram and the question of surgical revascularization has been brought up with the patient and her family. PHYSICAL EXAMINATION: The patient is seen in [place] bed [place] [facility] [place] daughter. Temperature is 36.5, pulse is 62, blood pressure is 163/ . The patient is bundled up in bed, quite conversant and alert. Full neurologic exam is not performed. IMAGING: I have reviewed the CT angiogram report, as well as the films themselves. 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 IMPRESSION AND PLAN: I have explained to the patient that carotid artery surgery for high-grade stenosis in the setting of a transient ischemic attack, or even asymptomatic carotid stenosis, can be addressed with surgical revascularization by carotid endarterectomy. However, the studies have demonstrated that revascularization of a completely occluded the internal carotid artery does not offer any benefit in stroke prevention, and in fact it increases risks of stroke either through endarterectomy or external carotid and internal carotid artery bypass. They remain unclear as to whether she did have a TIA or a CVA, or some unrelated event this hospitalization, and I have referred them back to the hospitalist service. I have left it with them that some surgeons might aggressively perform a conventional arteriogram in the hopes of finding a small communication suggesting that she has got a high-grade stenosis but I would not recommend that in her setting. I will not follow the patient while in the hospital. Please feel free to re-consult General Surgery for other questions regarding carotid revascularization.
[2016-10-05] VITALS (9 sets, daily range): BP systolic 146–187; BP diastolic 88–99; PULSE 55–83; RESP 20; O2SAT 98–99
[2016-10-05] MEDS: 0.9% Sodium Chloride 1,000 ML IV SCH ×3 (00:49→22:07)
[2016-10-05 06:17] LABS: BASOPHILS % (AUTO) 0.3 % (0-3); EOSINOPHILS % (AUTO) 7.1 % (0-5); MONOCYTES % (AUTO) 12.6 % (4-12); Mean Corpuscular Hemoglobin 31.1 pg (27.0-35.0); Mean Corpuscular Volume 90.6 fL (81-100); NEUTROPHILS % (AUTO) 53.8 % (40-74); Platelet Count 217 bil/L (150-400)
--- NOTE | 2016-10-05 06:31 | NUR ---
Neurologically: Pt stable throughout the night. No changes noted neurologically. Pt in a SB to SR 50s to 60s with PACs and PVCs noted on the monitor. Pt assisted up frequently to the BSC to void during the night. Susana Bed alarm activated.
--- NOTE | 2016-10-05 15:24 | PCM.DIMED ---
Marga Rosales DO 10/05/16 1524: Discharge Instructions Date of Service Oct 05, 2016 Dates of Hospitalization Oct 03, 2016 at 18:00 Discharge Diagnosis Discharge Diagnosis 1. CVA, present on admission, improving. 2. Ground-level fall, present on admission, resolved. 3. Chronic hypothyroidism, stable. 4. Hyperlipidemia, stable. 5. Chronic kidney disease stage III, present on admission, stable. 6. Chronic hypoglycemia, stable. Medication Instructions 1. Please start taking Plavix, 75 mg daily, Carvedilol 3.125 mg twice a day ( one in the morning and one in the evening) and Atorvastatin, 40 mg daily before bedtime. 2. Continue home blood pressure medications: Lisinopril 20 mg twice a day (one pill in the morning, one pill in the evening) , Hydrochlorothiazide, 25 mg daily. 3. STOP taking Aspirin and Metoprolol. Test Results PROCEDURE: CT BRAIN WITHOUT CONTRAST ([id number]) Brain: No intracranial bleeds or masses. There is cerebral volume loss for age , with resultant ventricular and sulcal prominence. No apparent residual of previous hemorrhag in the right frontoparietal hemisphere. There are extensive periventricular and deep white matter chronic small vessel ischemic changes. The chronic lacunar infarct adjacent to the right caudate nucleus on the last exam is much larger on current study, presumably representing extension of previous infarct but still chronic in appearance. There is intracranial internal carotid artery atherosclerosis. Skull and face: Calvarium and visualized facial bones appear intact, without suspicious lesions. Sinuses: Visualized sinuses and mastoids are clear. IMPRESSION: 1. No acute intracranial abnormality. 2. Age-related atrophy and extensive chronic deep white matter small vessel ischemic change. 3. Chronic lacunar infarct in the anterior right basal ganglia. Dictated by: Segundo Garcia M.D. on 10/03/2016 at 15:34 Approved by: Segundo Garcia M.D. on 10/03/2016 at 15:39 PROCEDURE: CT ANGIO HEAD AND NECK (P) INDICATIONS: Stroke/TIA BRAIN: The ventricular system and cortical sulci demonstrate atrophy, consistent for the patient's stated age. There are areas of hypodensity within the periventricular and subcortical white matter. There is no acute intra-or extra axial fluid collection. No acute hemorrhage, mass lesion or midline shift. Brainstem is unremarkable. Globes are symmetrical. Sinuses are aerated. Osseous structures are intact. HEAD CT ANGIOGRAPHY: The posterior circulation demonstrates a vertebral artery codominance. There is a high grade stenosis, approximately 85% within the distal left vertebral artery. Basilar artery and posterior cerebral arteries demonstrate no areas of hemodynamically significant stenosis, vascular occlusion or aneurysmal dilation. Posterior communicating arteries are within normal limits. 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 The left-sided anterior circulation, including the anterior and middle cerebral arteries, as well as the internal carotid arteries demonstrates no areas of hemodynamically significant stenosis, vascular occlusion or aneurysmal dilation. The right internal carotid artery is occluded. The right MCA appears patent likely secondary to collateral flow. 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 NECK CT ANGIOGRAPHY: The origins of the left and right common, left internal and left and right external carotid arteries demonstrate no areas of hemodynamically significant stenosis, vascular occlusion or aneurysmal dilation. There is very minimal narrowed flow of the proximal internal carotid artery on the right for approximately 8 mm from the origin. Distal to that point, there appears to be complete occlusion. Origins of the left and right vertebral arteries demonstrate no areas of hemodynamically significant stenosis, vascular occlusion or aneurysmal dilation. Aortic arch demonstrates conventional anatomy. Limited, visualized portions subclavian vasculature are unremarkable. Soft tissues: Visualized neck soft tissues demonstrate no suspicious abnormalities. Bones: No suspicious bony lesions. Visualized cervical spine appears normally aligned. IMPRESSION: 1. No acute intracranial process. 2. Moderate atrophy and chronic microvascular ischemic changes. 3. Complete occlusion of the right internal carotid artery, beginning approximately 8 mm distal to the origin with narrowed flow within the proximal most portion. 4. High grade stenosis of approximately 80% within the distal left vertebral artery. Dictated by: Nathalie Baig M.D. on 10/04/2016 at 9:39 Approved by: Nathalie Baig M.D. on 10/04/2016 at 9:55 PROCEDURE: MRI BRAIN WITHOUT CONTRAST ([id number]) Brain: No intracranial bleeds or mass effects. There is cerebral volume loss for age. There are extensive periventricular and deep white matter chronic small vessel ischemic changes. Encephalomalacia is present within the right parietal lobe. An old lacunar infarct is present within the right basal ganglia. Brainstem appears normal. There is a 1-2 mm focus of increased restricted diffusion in the right parietal lobe (series 2, image 60 and 33, image 14. No other findings to suggest acute or subacute infarct. No chronic ischemic insults. Normal intravascular flow voids are present. Skull and face: Calvarial bone marrow is normal in signal. Orbits are normal. Sinuses: Sinuses and mastoids are clear. IMPRESSION: 1. Punctate focus of increased restricted diffusion within the right parietal lobe suspicious for microinfarct. 2. Extensive white matter changes likely associated with chronic microvascular ischemia. 3. 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 Dictated by: Ladi Keys M.D. on 10/04/2016 at 13:23 Approved by: Ladi Keys M.D. on 10/04/2016 at 13:28 Diet Heart Healthy, Other (Soft diet recommended.) Activity Limited until seen by PCP Call your provider Fever or Chills, Shortness of breath, Bleeding, Chest pain, Vomitting, Excessive diarrhea, Weakness (unilateral) Patient Instructions Follow-up plan Please follow up with your PCP in 1-2 weeks. Follow-up Provider: Jeremías Burgos MD Follow-up with PCP in: 1 week Esther Fabian DO 10/06/16 1551: Discharge Instructions Date of Service Oct 06, 2016 Attending's Statement The patient was seen and examined together with Dr. Rosales on 10/06/16 and I agree with the history, exam and plan as outlined in the note above. Marga Rosales DO Oct 05, 2016 15:24 Esther Fabian DO Oct 06, 2016 15:51
[2016-10-05] MEDS ORDERED: CLOP75TA3 PO (15:26)
[2016-10-05] MEDS ORDERED: LIP40 PO (15:27)
--- NOTE | 2016-10-05 15:44 | PCM.DC.MED ---
Discharge Summary Date of Service Oct 06, 2016 Dates of Hospitalization Date of Hospital Admission Oct 03, 2016 at 18:00 Date of Discharge: Oct 06, 2016 Providers: Admitting Physician: Pascual Jeffers MD Primary Care Physician: Jeremías Burgos MD Attending Physician: Pascual Jeffers MD Diagnosis at Time of Discharge Diagnosis at Time of Discharge 1. CVA, present on admission, improving. 2. Ground-level fall, present on admission, resolved. 3. Chronic hypothyroidism, stable. 4. Hyperlipidemia, stable. 5. Chronic kidney disease stage III, present on admission, stable. 6. Chronic hypoglycemia, stable. Consultations Neurology, Dr. Vyas Surgery, Dr. Fernandes Procedures XRay, CTs & MRIs PROCEDURE: CT BRAIN WITHOUT CONTRAST IMPRESSION: 1. No acute intracranial abnormality. 2. Age-related atrophy and extensive chronic deep white matter small vessel ischemic change. 3. Chronic lacunar infarct in the anterior right basal ganglia. Dictated by: Segundo Garcia M.D. on 10/03/2016 at 15:34 Approved by: Segundo Garcia M.D. on 10/03/2016 at 15:39 PROCEDURE: CT ANGIO HEAD AND NECK (P) IMPRESSION: 1. No acute intracranial process. 2. Moderate atrophy and chronic microvascular ischemic changes. 3. Complete occlusion of the right internal carotid artery, beginning approximately 8 mm distal to the origin with narrowed flow within the proximal most portion. 4. High grade stenosis of approximately 80% within the distal left vertebral artery. Dictated by: Nathalie Baig M.D. on 10/04/2016 at 9:39 Approved by: Nathalie Baig M.D. on 10/04/2016 at 9:55 PROCEDURE: MRI BRAIN WITHOUT CONTRAST IMPRESSION: 1. Punctate focus of increased restricted diffusion within the right parietal lobe suspicious for microinfarct. 2. Extensive white matter changes likely associated with chronic microvascular ischemia. 3. 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 Dictated by: Ladi Keys M.D. on 10/04/2016 at 13:23 Approved by: Ladi Keys M.D. on 10/04/2016 at 13:28 Cardiac Echo Impression Echocardiogram Report Interpretation Summary The left ventricle is normal in size, wall thickness, and systolic function without any focal wall motion abnormalities. The ejection fraction is estimated to be 60-65%. There is no Doppler evidence for an atrial septal defect. There is mild to moderate mitral regurgitation. There is mild tricuspid regurgitation. The right ventricular systolic pressure is estimated at 31 mmHg assuming a right atrial pressure of 3 mm Hg. Electronically signed by: Alexys Maloney on Reading Physician:10/04/2016 01:09 PM Brief History Per Admitting Physician: Pascual Jeffers MD: 85-year-old female patient with a history of CVA 7 years ago, hypertension, hypothyroidism presented to the ER following a ground-level fall. Patient and her daughter are both poor historians. Patient reports that sometime yesterday or possibly today she fell and slipped off her bed and hit her buttocks on the ground while attempting to put her slippers on she states that she was able to get up and go to the restroom, and later was able to get up and go to the kitchen at which point she had another fall but denies any loss of consciousness. Patient reports she is not sure how or why she fell in the kitchen but denies any loss of consciousness or hitting her head. Patient reports that when she fell in the kitchen she had her medical alert button and her family was informed and EMS called. ER records demonstrate that patient had left-sided weakness on presentation. At the time of my interview all of the patient's symptoms had resolved. Vital signs in the ER as follows, temperature 36.6, pulse 68, respiratory rate 20, blood pressure 157/85, pulse ox 100% on room air. Hospital Course CVA, present on admission, improving. -MRI brain without contrast showed punctate focus of increased restricted diffusion within the right parietal lobe suspicious for microinfarct, consistent with CVA. -Neurology, Dr. Vyas consulted. Per his recommendation patient started and discharged with Plavix 75 mg and Atorvastatin 40 mg (labs on 09/14/16-total cholesterol 228, HDL 49, LDL 154, triglycerides 124). -All of patient's symptoms have resolved, and she was back to baseline at the time of discharge. -CT angio Heads & Neck showed complete occlusion of the right internal carotid artery, beginning approximately 8 mm distal to the origin with narrowed flow within the proximal most portion. High grade stenosis of approximately 80% within the distal left vertebral artery. Surgery has been consulted, no endarterectomy recommended for 100% occlusion if the opposite side perfusing. -Continued home BP medications Ground-level fall, present on admission, stable. -D/t acute CVA -EKG performed in the ER did not demonstrate any arrhythmias -Hemodynamically stable at the time of discharge Chronic hypothyroidism, stable. -TSH was 1.58 on 09/14/16 - Continued levothyroxine 75 mcg Hyperlipidemia, stable. -Continued atorvastatin 40 mg Chronic kidney disease stage III, present on admission, stable. -Outpatient records demonstrate creatinine of 1.42 on 09/14/2016 -BUN and creatinine on admission 33 and 1.29 respectively, 16 and 0.98 at discharge Chronic hypoglycemia, stable. -No hypoglycemia on presentation, patient had glucose of 96 at discharge Exam Vital Signs (Last) Date Time Temp Pulse Resp B/P Pulse Ox O2 Delivery O2 Flow Rate FiO2 10/05/16 12:31 36.6 61 20 170/97 98 Room Air Exam General: No acute distress, well-developed, well-nourished, appropriately interactive HEENT: Normocephalic, atraumatic. External ears without defect. Pupils equal, round, and reactive to light and accommodation. Moist conjunctivae. Oropharynx with moist mucosa. Neck: Supple with full range of motion.No lymphadenopathy Cardiovascular: Regular rate and rhythm with no murmurs, rubs, or gallops appreciated Pulmonary: Clear to auscultation bilaterally with no crackles, wheezes, or rhonchi. Normal respiratory effort with no use of accessory muscles. Abdomen: Bowel tones present. Soft, nontender, nondistended. Extremities: No clubbing, cyanosis, edema, appreciated. Skin: Normal temperature, turgor, and texture; no rash, ulcers, or subcutaneous nodules appreciated. Psychiatric: Normal mood and affect. Alert and oriented to person, place, and time. Neurological: Cranial nerves grossly intact. Normal muscle strength, tone, and bulk. Reflexes, coordination, and sensory function within normal limits. Test 10/03/16 14:55 10/03/16 21:36 10/03/16 23:19 10/05/16 05:45 Hemoglobin A1c 5.6% (4.8-5.6) Magnesium Level 1.7mg/dL (1.6-2.6) Troponin T < 0.010ug/L (0.0-0.011) Prothrombin Time 10.4sec (8.1-12.5) Prothromb Time International Ratio 0.97ratio Urine Color Straw (YELLOW) Urine Appearance Hazy (CLEAR,HAZY) Urine pH 6.0 (5.0-8.0) Urine Specific Jefferson 1.009 (1.003-1.035) Urine Protein Negativemg/dL (NEG,TRACE) Urine Glucose (UA) Negativemg/dL (NEGATIVE) Urine Ketones Negativemg/dL (NEGATIVE) Urine Occult Blood Trace (NEGATIVE) Urine Nitrite Negative (NEGATIVE) Urine Bilirubin Negative (NEGATIVE) Urine Urobilinogen Normalmg/dL (NORMAL) Urine Leukocyte Esterase Negative (NEGATIVE) Urine RBC 0-2/hpf (0-2) Urine WBC 0-5/hpf (0-5) Urine Epithelial Cells Occasional/hpf (NONE-MOD) Urine Crystals None seen (NONE SEEN) Urine Bacteria Few/hpf (NONE-FEW) Urine Hyaline Casts None/lpf (NONE) Urine Granular Casts None seen (NONE SEEN) Urine Waxy Casts None seen (NONE SEEN) Urine Red Blood Cell Casts None seen (NONE SEEN) Urine White Blood Cell Casts None seen (NONE SEEN) Urine Mucus None seen (None Seen) Urine Trichomonas None seen (NONE SEEN) Urine Yeast None (NONE SEEN) Urinalysis Comment None Urine Culture Reflexed Not indicated White Blood Count 7.4th/mm3 (3.8-10.1) Red Blood Count 3.63mil/mm3 (3.90-5.20) Hemoglobin 11.3g/dL (12.0-15.6) Hematocrit 32.9% (35.0-46.0) Mean Corpuscular Volume 90.6fL (81-100) Mean Corpuscular Hemoglobin 31.1pg (27.0-35.0) Mean Corpuscular Hemoglobin Concent 34.3% (32.0-37.0) Red Cell Distribution Width 13.8% (12.3-15.4) Platelet Count 217bil/L (150-400) Neutrophils (%) (Auto) 53.8% (40-74) Lymphocytes (%) (Auto) 25.9% (14-46) Monocytes (%) (Auto) 12.6% (4-12) Eosinophils (%) (Auto) 7.1% (0-5) Basophils (%) (Auto) 0.3% (0-3) Sodium Level 143mEq/L (134-144) Potassium Level 3.8mEq/L (3.5-5.2) Chloride Level 110mEq/L (97-108) Carbon Dioxide Level 20mmol/L (18-29) Blood Urea Nitrogen 16mg/dL (8-27) Creatinine 0.98mg/dL (0.57-1.00) Estimat Glomerular Filtration Rate 77mL/min (>59) Glucose Level 96mg/dL (60-99) Calcium Level 8.5mg/dL (8.5-10.1) Total Bilirubin 0.6mg/dL (0.0-1.2) Aspartate Amino Transf (AST/SGOT) 20U/L (0-50) Alanine Aminotransferase (ALT/SGPT) 9U/L (0-32) Alkaline Phosphatase 64U/L (25-165) Total Protein 5.8g/dL (6.4-8.4) Albumin 3.4g/dL (3.4-5.0) Discharge Medications Discharge Medications Atorvastatin (Lipitor) 40 Mg Tablet 40 MG PO DAILY Prescribed by: CELINE CHAN DO Carvedilol (Carvedilol) 3.125 Mg Tablet 3.125 MG PO BID Prescribed by: CELINE CHAN DO Clopidogrel Bisulfate (Plavix) 75 Mg Tablet 75 MG PO DAILY Prescribed by: CELINE CHAN DO Hydrochlorothiazide (Hydrochlorothiazide) 25 Mg Tablet 25 MG PO DAILY (Reported ) Levothyroxine (Levothyroxine) 75 Mcg Tablet 75 MCG PO QAM (Reported) Lisinopril (Lisinopril) 20 Mg Tablet 20 MG PO BID (Reported) Lisinopril (Lisinopril) 20 Mg Tablet 20 MG PO BID Prescribed by: CELINE CHAN DO Additional med instructions Please start taking Plavix, 75 mg daily and Atorvastatin, 40 mg daily before bedtime. Continue home blood pressure medications: Metoprolol, HCTZ, Lisinopril. Followup Plan Follow-up plan Please follow up with your PCP in 1-2 weeks. Discharge Diet: Heart Healthy, Other (Soft diet recommended.) Discharge Activity: Limited until seen by PCP Follow-up Provider: Jeremías Burgos MD Follow-up with PCP in: 1 week Attending Statement The patient was seen and examined together with Dr. Chan on 10/06/2016 and I have added additional information to the note above. copies to: Jeremías Burgos MD, Oksana S DO Oct 05, 2016 15:44 Esther Fabian DO Oct 06, 2016 15:53
--- NOTE | 2016-10-05 16:43 | NUR ---
Postponed discharge: Family notified of discharge plans. Per PT, pt needs 24hr caregiver support/FWW. No such support plan documented or found. Pt's son reports that pt's house is not safe enough for a walker. Discharge postponed until tomorrow, to confirm safe planning with case management and family.
--- NOTE | 2016-10-05 16:55 | NUR ---
Social Work: Discharge: Bilingual Speech Language Pathologist met with patient and patient's son at bedside to discuss discharge plan. Patient son stated that patient is unable to return to her home with her daughter moving in as previously discussed because there is no room. patient states that there is a twin bed that her daughter can stay in at the home to care for her, but patient's son states that there is not enough room. Patient will discharge home with son on on tomorrow and Lesa DIEZ. The address where the patient will discharge to is [address] [place] [address]. [phone]. Patient's son is Luisito and he can be reached at [phone]. Patient's son reported that he will be at the hospital around 9am on 10/06/16 to pick the patient up when discharged. SW contact information provided to patient's son and is on the patient's white board. SW will continue to follow. Plan: Patient is likely to discharge home with son and Lesa DIEZ on 10/05/16. Lesa DIEZ picked up patient's [id number] and was given access to patient's chart. SW will continue to follow. DANA Ramos Addendum: 10/05/16 at 1706 by RENEE BENNETT Home Health should contact patient's [id number], [place] [phone], to schedule home health visit.
--- NOTE | 2016-10-05 18:02 | NUR ---
Case Management: IMM explained to patient, son and other family members at 1729, all questions answered. Pt's son signed IMM, signed original placed in chart, copy given to son Luisito. Leslie Xiao RN
[2016-10-05] MEDS ORDERED: MeTOProlol XL 25 mg ER24 Tablet PO SCH (21:00)
[2016-10-06 01:27] VITALS: BP 158/79; PULSE 60; O2SAT 96
[2016-10-06 05:38] VITALS: BP 162/82; PULSE 58; RESP 18; O2SAT 99
[2016-10-06 06:04] VITALS: PULSE 68
[2016-10-06 07:31] LABS: BASOPHILS % (AUTO) 0.3 % (0-3); EOSINOPHILS % (AUTO) 8.3 % (0-5); MONOCYTES % (AUTO) 10.9 % (4-12); Mean Corpuscular Hemoglobin 31.4 pg (27.0-35.0); Mean Corpuscular Volume 91.3 fL (81-100); NEUTROPHILS % (AUTO) 56.7 % (40-74); Platelet Count 224 bil/L (150-400)
[2016-10-06 08:00] VITALS: PULSE 76
[2016-10-06] MEDS ORDERED: CARV3.122 PO (11:28)
[2016-10-06] MEDS ORDERED: LISI-567 PO (11:32)
--- NOTE | 2016-10-06 13:35 | NUR ---
Social Work: Discharge Data: Pt is on day 3 of hospitalization. EMR reviewed. D/C orders are in. Pt will be staying with son in [place] after d/c. Lesa DIEZ does not services [place]. Nila DIEZ does service [place]. MOTION PICTURE SCENE BUILDER referred pt to [facility] over phone. Access given. F2F faxed to Nila . Assessment: Pt who is independent at baseline. Plan: Pt will d/c home via POV with son with [employer] for RN, PT, CORRECTIONAL GUARD, OT. No further d/c planning needs at this time. MOTION PICTURE SCENE BUILDER will continue to follow if needs arise. VICKIE Jara
[2016-10-06 14:38] VITALS: BP 123/83; PULSE 67; RESP 18; O2SAT 96
--- NOTE | 2016-10-06 15:20 | NUR ---
Discharge Pt left via son and POV to home. HH PT will follow. Family is educated in discharge and instructions. no further questions.
--- NOTE | 2016-10-06 20:35 | CONS ---
[address] [address] CONSULTATION REPORT PATIENT: ARLETTE CALIXTO : 1930 MR#: [id number] ADMIT: 10/03/2016 JOB ID: [id number] DATE OF SERVICE: 10/05/2016 NEUROLOGY CONSULTATION: REQUESTING RESIDENT: Marga Rosales DO REQUESTING ATTENDING: Esther Fabian DO CHIEF COMPLAINT: Sudden onset of weakness and a ground level fall. HISTORY OF PRESENTING ILLNESS: The patient is a pleasant 85-year-old woman with multiple medical problems, including a history of a stroke seven years ago, also a history of hypertension and hypothyroidism, who presented to the emergency department following a ground level fall. She describes that she felt unwell and had trouble sitting up in bed, and then was attempting to obtain some juice in the pantry when she suddenly slumped over. She reports that she fell in the kitchen but did not lose can consciousness or hit her head. Initially she was noted to have left-sided weakness on presentation. She reports that presently she feels back to baseline. Her NIH stroke scale was three. Left arm motor drift with a score one, drift did not touch bed and ataxia in two limbs, left upper and left lower, for a total score of two. Her stroke was in August 2009. She reports that she now feels back to baseline. A computed tomography scan of her head was performed, which demonstrated no acute intracranial abnormality. Age related atrophy and extensive chronic deep white matter small vessel ischemic changes were noted. Chronic lacunar infarct in the anterior right basal ganglia was noted. A CT angiogram was performed which demonstrated no acute intracranial process. Moderate atrophy and chronic microvascular ischemic changes were noted. Complete occlusion of the right internal carotid artery was noted, beginning approximately 8 mm distal to the origin, with narrowing flow within the proximal-most region. High-grade stenosis of approximately 80% within the distal left vertebral artery. A magnetic resonance imaging study of the brain without contrast demonstrated a punctate focus of increased restricted diffusion within the right parietal lobe suspicious for an infarct, extensive white matter changes likely associated with chronic microvascular ischemia, an old right basal ganglia infarct, and old right parietal infarct. I reviewed this in detail with the patient and family members. REVIEW OF SYSTEMS: A complete review of systems was performed and was remarkable for above-noted. HOME MEDICATIONS: Include aspirin 81 mg daily, levothyroxine, hydrochlorothiazide, lisinopril, metoprolol. ALLERGIES: No known drug allergies. PAST MEDICAL HISTORY: Remarkable for a stroke in 2009, hypoglycemia, peripheral arterial disease, hypertension, hypothyroidism, hyperlipidemia, chronic kidney disease stage 3. PAST SURGICAL HISTORY: No reported surgical history. FAMILY HISTORY: No history of any neurologic disorders. Her father had bladder cancer. SOCIAL HISTORY: No tobacco, alcohol, or drugs. She lives alone. Vital signs initially were temperature 37.3, pulse of 90, respiratory rate of 18, blood pressure 160/97 pulse ox of 98% on room air. INITIAL LABORATORY STUDIES: WBC of 10.9, hemoglobin 12.3, hematocrit 34.9, and platelets of 217. Sodium 139, potassium 3.7, chloride 101, bicarb 20, BUN was 33, creatinine was 1.29, glucose 1.2. The patient was admitted for stroke evaluation. Placed on stroke protocol. Vascular surgery was consulted as there is complete occlusion of the carotid artery in a patient who is not a candidate for carotid endarterectomy. PHYSICAL EXAMINATION: Temperature 36.8, pulse of 83, respiratory rate of 20, blood pressure 187/99, and pulse oximetry 98% on room air. General: She is a well-developed, well-nourished woman in no acute distress. Head: Normocephalic, atraumatic. Neck: Supple. No carotid bruits were auscultated. Negative Kernig. Negative Brudzinski. Chest: Clear to auscultation. Heart: Regular rate and rhythm. Abdomen: Soft, nondistended, nontender. Extremities: No cyanosis, clubbing, or edema. NEUROLOGIC EXAMINATION: Mental status: She is awake, alert, and oriented x3. Speech clear and fluent, with intact comprehension. There was no aphasia. Cranial nerves: Pupils equal, round, and reactive to light. Extraocular movements were smooth and conjugate, with no evidence of nystagmus. Face appeared symmetrical. Facial sensation was intact to light touch and temperature. Auditory sensation was intact to finger rub. Palatal elevation was symmetrical. Tongue was midline. Sternocleidomastoid and trapezii are 5/5 bilaterally. Motor: Normal tone and bulk. Muscle strength 5/5 throughout. Sensation: Intact to light touch and temperature. Coordination: [id number] was intact, with no evidence of dysmetria. Deep tendon reflexes were 1+ and symmetrical throughout. They were trace at the Achilles bilaterally. Plantars were equivocal bilaterally. Gait was deferred. 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 My suspicion is that the stroke may have been secondary to her multiple stroke risk factors. Her cholesterol is noted to be 181, with LDL cholesterol of 112 and HDL cholesterol of 49. Our goal is an LDL cholesterol under 100. She also has hypertension and hypothyroidism. However, she does not smoke. These are all risk factors for stroke. My suspicion is that she may have had a stroke prior to the time that she awoke and felt unsteady and had difficulty getting out of bed. However, it may have been ongoing at that time, and acute in nature. She reports that she is now back to baseline. I did discuss with the patient and the family the differences between transient ischemic attack and a small stroke. In her case she does not have any residual deficits and thus her symptoms are similar to a transient ischemic attack. However, the presence of a stroke on imaging studies confirms the diagnosis of a stroke. RECOMMENDATIONS: Continue aspirin 81 mg and Plavix 75 mg for three months and then continue on Plavix 75 mg daily thereafter. I also reviewed in detail the side effects of dual antiplatelet therapy in detail with the patient. She did fall to the ground, however did not lose consciousness. Based on the clinical history and imaging studies, I cannot exclude the possibility that the vertebral stenosis may have contributed to her symptoms and recommend treatment of intracranial stenosis with dual antiplatelet therapy for three months followed by continuing on Plavix as the event occurred on aspirin and thus I am concerned that the stroke may have been secondary to a degree of aspirin resistance. I also recommend optimization of control of her stroke risk factors. I recommend continued optimization of the patient's stroke risk factors. Her NIH stroke scale here today is zero. Thank you, again, Dr. Rosales, for allowing me to participate in the care of your patient, and attending Dr. Jeffers. Please feel free to contact me with any questions or concerns. I recommend that the patient follow up with her primary care provider in one week and in the neurology clinic as needed. ABBI
== END 2016-10-06 15:43 | disposition home health service (06) | DRG 66 ==
LOC: EDUNIT# 13:14 → SED 13:14 → EDBD 13:14 → MPC 18:00 → OBSVTOIN 18:00
PROVIDERS: ADMIT Family Medicine; ATTEND Family Medicine
DX: I63.9 Cerebral infarction, unspecified (principal); I65.21 Occlusion and stenosis of right carotid artery; I65.02 Occlusion and stenosis of left vertebral artery; N18.3 Chronic kidney disease, stage 3 (moderate); Z86.73 Personal history of transient ischemic attack (TIA), and cerebral infarction without residual deficits; W06.XXXA Fall from bed, initial encounter; W18.30XA Fall on same level, unspecified, initial encounter; Y92.013 Bedroom of single-family (private) house as the place of occurrence of the external cause; Y92.010 Kitchen of single-family (private) house as the place of occurrence of the external cause; Y99.9 Unspecified external cause status; Y93.9 Activity, unspecified; E03.9 Hypothyroidism, unspecified; Z66 Do not resuscitate

== ENCOUNTER 2016-11-24 09:53 | Emergency (ER) | payer MEDICARE ==
[~2016-11-24 09:53] MED LIST: CARV3.122 PO; CLOP75TA3 PO; HYDR25TA4 PO; LEVO75TA4 PO; LIP40 PO; LISI-567 PO
[2016-11-24 09:58] VITALS: BP 106/69; PULSE 85; RESP 20; O2SAT 98
--- NOTE | 2016-11-24 10:01 | ED.REPORT ---
HPI-General Illness Date of Service Nov 24, 2016 ED Provider: Dr. Cleveland A 85 year old female with a history of dementia, stroke and hypothyroidism presents to the ED via EMS after staff at [facility] noted left sided chest/epigastric pain onset this morning. Associated symptoms include pleuritic pain and memory problems. Per nurse, she did not eat breakfast this morning. She denies any recent falls but was recently sick. Nursing Notes Stated Complaint: CHEST PAIN Chief Complaint: Chest Pain-Non Cardiac Nature Nursing Notes Reviewed: Yes Allergies: Coded Allergies: No Known Allergies (Unverified , 10/03/16) Scheduled Atorvastatin (Lipitor) 40 Mg Tablet 40 MG PO DAILY Azithromycin (Zithromax) 250 Mg Tablet 250 MG PO DAILY daily starting 11/25,,, Carvedilol (Carvedilol) 3.125 Mg Tablet 3.125 MG PO BID Clopidogrel Bisulfate (Plavix) 75 Mg Tablet 75 MG PO DAILY Hydrochlorothiazide (Hydrochlorothiazide) 25 Mg Tablet 25 MG PO DAILY Levothyroxine (Levothyroxine) 75 Mcg Tablet 75 MCG PO QAM Lisinopril (Lisinopril) 20 Mg Tablet 20 MG PO BID Lisinopril (Lisinopril) 20 Mg Tablet 20 MG PO BID General Time Seen by MD: 10:01 Transferred From: half-way Chief Complaint Other (epigastric chest pain) Hx Obtained From: Patient, EMS Arrived By: Ambulance Sudden in Onset?: No Onset Occurred: 1 - 4 hours ago Symptom Duration: Since onset Location: : Chest Severity: Current: Moderate Severity: Maximum: Moderate Recent Healthcare: No recent doctor visit Similar Sx Previous: No Past Medical History Past Medical History Notes: Takes Metoprolol and baby Aspirin at home. Not currently taking blood thinner medication. CODE STATUS: DNR Past Medical History Stroke in August,. Hypothyroidism. Hypoglycemia. Chronic kidney disease. Afib. Reports: Hypertension Past Surgical History Reports: Appendectomy, Tonsillectomy Smoking History Never Smoker Social History Other Social History: Good social support, Lives alone Review of Systems Validity of her answers is somewhat questionable because of her dementia. Reports memory problems. Full Review of Systems Constitutional: Denies: Fever Respiratory: Reports: Pleuritic pain Cardiovascular: Reports: Chest pain (epigastric) GI: Denies: Abdominal pain, Nausea Musculoskeletal: Denies: Extremity pain (denies any other pain) Complete sys rev & neg: except as marked. Physical Exam Vital Signs Vital Signs Date Time Temp Pulse Resp B/P Pulse Ox O2 Delivery O2 Flow Rate FiO2 11/24/16 14:07 79 16 99/67 98 Room Air 11/24/16 12:17 89 17 99/62 98 Room Air 11/24/16 09:58 36.4 85 20 106/69 98 Room Air Initial VS: Reviewed General/Constitutional: Awake Patient is demented at baseline with signifigant confusion, but responds to questions. Head / Eyes: Atraumatic, Normocephalic, PERRL, EOMI ENT: Atraumatic, Mucous membranes moist Respiratory / Chest: Breath sounds NL, Breath sounds = bilat She has sternal tednerness and costochondral tednerness along left side that recreates pain that she was complaining about this morning as best as she can tell. Cardiovascular: Heart rate NL, Regular rhythm, Heart sounds NL, No gallop, No murmurs, No rubs Abdomen: No guarding, No rebound Upper Extremities Upper Extremity / MS: No swelling, No edema Skin: Atraumatic, Color NL, Warm, Dry Neurologic: Speech NL Interpretation & Diagnostics Lab Results Interpretation Result Diagram: 11/24/16 1035 11/24/16 1035 Test 11/24/16 10:35 White Blood Count 10.5th/mm3 (3.8-10.1) Red Blood Count 3.17mil/mm3 (3.90-5.20) Hemoglobin 9.7g/dL (12.0-15.6) Hematocrit 29.9% (35.0-46.0) Mean Corpuscular Volume 94.3fL (81-100) Mean Corpuscular Hemoglobin 30.6pg (27.0-35.0) Mean Corpuscular Hemoglobin Concent 32.4% (32.0-37.0) Red Cell Distribution Width 14.0% (12.3-15.4) Platelet Count 416bil/L (150-400) Neutrophils (%) (Auto) 76.0% (40-74) Lymphocytes (%) (Auto) 12.9% (14-46) Monocytes (%) (Auto) 9.7% (4-12) Eosinophils (%) (Auto) 0.8% (0-5) Basophils (%) (Auto) 0.1% (0-3) Sodium Level 136mEq/L (134-144) Potassium Level 4.5mEq/L (3.5-5.2) Chloride Level 101mEq/L (97-108) Carbon Dioxide Level 20mmol/L (18-29) Blood Urea Nitrogen 22mg/dL (8-27) Creatinine 1.01mg/dL (0.57-1.00) Estimat Glomerular Filtration Rate 74mL/min (>59) Glucose Level 107mg/dL (60-99) Calcium Level 8.8mg/dL (8.5-10.1) Magnesium Level 1.5mg/dL (1.6-2.6) Total Bilirubin 0.6mg/dL (0.0-1.2) Aspartate Amino Transf (AST/SGOT) 15U/L (0-50) Alanine Aminotransferase (ALT/SGPT) 19U/L (0-32) Alkaline Phosphatase 107U/L (25-165) Total Protein 5.8g/dL (6.4-8.4) Albumin 2.8g/dL (3.4-5.0) Lipase 27U/L (13-60) Hold Prince Top Tube Received (Received) ECG Interpretation ECG Interpretation: Rate is 81. Atrial fibrillation, chronic. no ischemia. Time: 10:41 Interpreted by: ED physician X-Ray Chest Interpretation Chest Xray Interpretation: IMPRESSION: 1. Density in the left lung base medially. Differential diagnoses include pneumonia, atelectasis, or pseudomass related to hiatal hernia. A lateral view is suggested for further evaluation. 2. Blunting of the costophrenic angle may be secondary to pleural scarring or trace pleural effusion. Dictated by: Tremaine Griffith M.D. on 11/24/2016 at 10:36 Approved by: Tremaine Griffith M.D. on 11/24/2016 at 10:39 Interpretation / Wet Read by: Interpret - Radiologist Re-Eval/Medical Decision Med Decision/Clinical Course Presents from [facility] with staff reports of chest pain. Patient is pleasantly demented and waffles a bit on overall symptoms. Symptoms asymptomatic while in the emergency department. Chest x-ray has a suggestion of finding in the left lower lobe. Slightly elevated white count. Certainly conceivable that a developing pneumonia could be causing her symptoms. At this point certainly not cardiac. At this point we will suggest that she return to [facility]. We will start her on a five-day course of azithromycin for presumed left lower lobe pneumonia. Source of Hx: Old records, EMS Time of Eval: 13:42 Patient Status: Condition improved Re-Evaluation/Progress Note: Rechecked patient who is accompanied by daughter. Reviewed diagnosis and plan with daughter who understands and agrees with the plan. Patient blood pressure is 96/60 which is close to patient baseline blood pressure with her medication. Counseled Regarding: Diagnosis, Lab results, Need for follow-up, When/why to return to ED Discharge & Departure Primary Impression: Non-cardiac chest pain Additional Impression: Left lower lobe pneumonia Pneumonia type: due to unspecified organism Qualified Code: J18.1 - Lobar pneumonia, unspecified organism Disposition: Home Discharge Condition All VS Reviewed: Yes Condition: Improved Additional Instructions: The chest x-ray today suggested possibility of a pneumonia. In light of the pain you are currently experiencing and a slightly elevated white blood cell count, I will opt to put you on antibiotics. I suspect that it is a left lower lobe pneumonia that is causing the chest pain that you are experiencing today If you are worse please return to the emergency department Prescription will include azithromycin 250 mg for 4 additional days, first dose of 500 mg is given in the emergency department. Referrals: Jeremías Burgos MD (PCP) Scribe Attestation Portions of this note were transcribed by Chuck Richardson and Adilson Mcclendon. I, Dr. Cleveland personally performed the history, physical exam and medical decision- making; I reviewed and confirmed the accuracy of the information in the transcribed note. Signed by: Dayana King, 11/24/2016, 1344. copies to: Jeremías Burgos MD, Shawna L MD Nov 24, 2016 10:01 Chuck Richardson Nov 24, 2016 10:07 ADILSON MCCLENDON Nov 24, 2016 14:19
--- NOTE | 2016-11-24 10:40 | DRSVH ---
PROCEDURE: X-RAY CHEST ONE VIEW, PORTABLE ([id number]) INDICATIONS: chest pain TECHNIQUE: One view of the chest was acquired. COMPARISON: [facility], , CHEST 1VW (PORTABLE), 08/23/2009, 10:33. FINDINGS: Surgical changes and devices: None. Lungs and pleura: There is a density in the left lung base medially. No pneumothorax. Blunting of t he left costophrenic angle may be trace pleural effusion or pleural scarring. Mediastinum: Mediastinal contours appear normal. Heart size is normal. Bones and chest wall: No suspicious bony lesions. Overlying soft tissues appear unremarkable. IMPRESSION: 1. Density in the left lung base medially. Differential diagnoses include pneumonia, atelectasis, or pseudomass related to hiatal hernia. A lateral view is suggested for further evaluation. 2. Blunting of the costophrenic angle may be secondary to pleural scarring or trace pleural effusion. Dictated by: Tremaine Griffith M.D. on 11/24/2016 at 10:36 Approved by: Tremaine Griffith M.D. on 11/24/2016 at 10:39
[2016-11-24 10:44] LABS: BASOPHILS % (AUTO) 0.1 % (0-3); EOSINOPHILS % (AUTO) 0.8 % (0-5); MONOCYTES % (AUTO) 9.7 % (4-12); Mean Corpuscular Hemoglobin 30.6 pg (27.0-35.0); Mean Corpuscular Volume 94.3 fL (81-100); Platelet Count 416 bil/L (150-400)
[2016-11-24 11:42] LABS: Magnesium 1.5 mg/dL (1.6-2.6)
[2016-11-24 12:17] VITALS: BP 99/62; PULSE 89; RESP 17; O2SAT 98
[2016-11-24] MEDS ORDERED: ZIT250 PO (13:31)
[2016-11-24 14:07] VITALS: BP 99/67; PULSE 79; RESP 16; O2SAT 98
== END 2016-11-24 14:08 | disposition home or self-care (01) ==
LOC: SED 09:53 → EDUNIT# 09:53 → EDBD 09:53 → SED 14:08
DX: R07.89 Other chest pain (principal); J18.1 Lobar pneumonia, unspecified organism; F03.90 Unspecified dementia, unspecified severity, without behavioral disturbance, psychotic disturbance, mood disturbance, and anxiety; E03.9 Hypothyroidism, unspecified; Z86.73 Personal history of transient ischemic attack (TIA), and cerebral infarction without residual deficits; I12.9 Hypertensive chronic kidney disease with stage 1 through stage 4 chronic kidney disease, or unspecified chronic kidney disease; Z66 Do not resuscitate